=== PATIENT | female | born 1995 | race Caucasian/White ===

== ENCOUNTER → 2020-12-05 08:21 | Outpatient (CLI) | payer BC, SELFPAY ==
--- NOTE | ~2020-12-05 | US_ITS ---
EXAMINATION: US OB /maternal detail DATE: 12/05/2020 09:06 INDICATION: Second trimester anatomic survey TECHNIQUE: Real-time ultrasound of the pelvis was performed. COMPARISON: None. FINDINGS: There is a single living fetus in vertex presentation. The placenta is anterior and 5.1 cm from the i nternal cervical os. heart rate is 153 beats per minute (bpm). cardiac activity and feta l movement are noted. The amniotic fluid index is subjectively normal. The following anatomy was identified as normal: 4 chamber heart 3 vessel cord cord insertion kidneys urinary bladder stomach spine diaphragm ventricles cisterna magna cerebellum The following biometric data were obtained: Biparietal diameter (BPD): 4.4 cm; head circumference (HC): 16.3 cm; abdominal circumference (AC): 14 .0 cm; femur length (FL): 2.8 cm. These measurements are concordant. Estimated weight is 272 g +/- 40 g, which correlates with the 41st percentile when 04/30/2021 i s used as estimated date of delivery. As single measurements, these parameters are each equal to the following estimated gestational ages w ith ranges of +/- 2 standard deviations: BPD: 19 weeks 3 days ( 17 weeks 4 days - 21 weeks 1 days). HC: 19 weeks 1 days ( 17 weeks 4 days - 20 weeks 4 days). AC: 19 weeks 3 days ( 17 weeks 2 days - 21 weeks 3 days). FL: 18 weeks 5 days ( 16 weeks 6 days - 20 weeks 3 days). estimated gestational age based solely on measurements from this exam is 19 weeks 1 days +/- 1 weeks 2 days. IMPRESSION: 1. Single living fetus in vertex presentation. 2. Estimated weight is 272 g +/- 40 g, which correlates with the 41st percentile when 1 is used as estimated date of delivery. Reviewed, dictated and finalized at location B. IMPRESSION: 1. Single living fetus in vertex presentation. 2. Estimated weight is 272 g +/- 40 g, which correlates with the 41st per centile when 04/30/2021 is used as estimated date of delivery.
== END ==
PROVIDERS: Visit Provider Obstetrics & Gynecology
DX: Z36.9 Encounter for antenatal screening, unspecified (principal); Z3A.19 19 weeks gestation of pregnancy
CPT/HCPCS: 76805

== ENCOUNTER 2021-02-24 05:40 | Observation (INO) | payer OTHER, SELFPAY ==
[2021-02-24 06:30] VITALS: BP 106/69; PULSE 125
[2021-02-24 06:35] VITALS: BMI 30.2
[2021-02-24 06:45] VITALS: BP 107/66; PULSE 125
[2021-02-24 07:00] VITALS: BP 107/62; PULSE 123
[2021-02-24 07:15] VITALS: BP 100/60; PULSE 120
[2021-02-24 07:17] LABS: Add Urine Microscopic? YES; Appearance Urine Clear (Clear); Bacteria Urine Trace /hpf; Bilirubin Urine Negative (Negative); Blood Urine Negative (Negative); Color Urine Yellow (Yellow); Glucose Urine UA Negative (Negative); Ketones Urine Trace mg/dL (Negative); Leukocyte Esterase Ur Negative LEU/UL (NEGATIVE); Nitrate Urine Negative (Negative); Protein Urine Negative (Negative); RBC Urine 0-2 /hpf (0-2); Specific Grav Ur 1.012 (1.001-1.035); Squamous Epithelial Cell Urine Few /hpf (Few); Urobilinogen Urine Negative mg/dL (<2.0); WBC Urine 0-3 /hpf (0-3)
[2021-02-24 07:30] VITALS: BP 97/55; PULSE 123
[2021-02-24 07:45] VITALS: BP 93/41; PULSE 116
--- NOTE | 2021-02-24 07:45 | OBADM ---
This patient, Soraya Salazar, admitted to the OB room OB Post 116 for observation. Patient/family oriented to hospital policies and general routines including ID bracelet, bed and alarms, visiting hours, pain management, procedures, bathroom and other care routines, personal items, smoking policy, room service/diet, and visiting hours. Patient/Family are encouraged to report perceived risks to care and to ask questions if they do not understand what they are told or what they should do.
--- NOTE | 2021-03-04 10:31 | PM.OBTRLD ---
OB - Triage/Final Diagnosis Visit Information Comments/Additional reasons for admission: I have assessed the risk for this patient, Soraya Salazar, and determined that she would benefit from observation care. Evaluation Laboratory results: Laboratory Tests 02/24/21 06:56 Urine Color Yellow Urine Appearance Clear Urine pH 6.0 Ur Specific [place] 1.012 Urine Protein Negative Urine Glucose (UA) Negative Urine Ketones Trace Ur Blood (Man) Negative Urine Nitrate Negative Urine Bilirubin Negative Urine Urobilinogen Negative Ur Leukocyte Esterase Negative Urine RBC 0-2 Urine WBC 0-3 Ur Squamous Epith Cells Few Urine Bacteria Trace Final Diagnosis (1) False labor: Code(s): O47.9 - False labor, unspecified Status: Acute
== END 2021-02-24 08:40 | disposition home or self-care (01) ==
PROVIDERS: Admitting Provider Obstetrics & Gynecology; PCP Nurse Practitioner Family; Visit Provider Obstetrics & Gynecology
DX: O47.03 False labor before 37 completed weeks of gestation, third trimester (principal); Z3A.30 30 weeks gestation of pregnancy
CPT/HCPCS: 81001; 87086; G0378

== ENCOUNTER → 2021-03-02 11:03 | Outpatient (CLI) | payer OTHER, SELFPAY ==
--- NOTE | ~2021-03-02 | US_ITS ---
EXAMINATION: US OB follow up DATE: 03/02/2021 11:28 INDICATION: Large for gestational age during third trimester . Assess amniotic fluid index. TECHNIQUE: Real-time ultrasound of the pelvis was performed. The interpreting radiologist was not pre sent for the study. COMPARISON: 12/05/2020 FINDINGS: There is a single living fetus in vertex presentation. The placenta is anterior and not low-lying. F etal heart rate is 133 beats per minute (bpm). The amniotic fluid index is 17.4 cm, which is normal (5th%-95%: 8.8-23.8 cm at 31 weeks estimated gestational age). The following biometric data were obtained: BPD: 8.2 cm -> 33 weeks 1 days Head circumference: 30.2 cm -> 33 weeks 4 days Abdominal circumference: 28.0 cm -> 32 weeks 0 days Femur length: 6.2 cm -> 32 weeks 0 days These measurements are concordant. Head circumference to abdominal circumference ratio: 1.08 (normal range 0.96-1.12). Estimated weight: 1935 g (+/-) 290 g or 4 lbs. 4 oz. (+/-) 10 oz. IMPRESSION: 1. Single living fetus in vertex presentation with heart rate of 133 bpm. 2. Minimal amniotic fluid index of 17.4 cm. 3. Estimated weight is 62nd percentile by Hadlock criteria when 04/30/2021 is used as the estim ated date of delivery (LUIS). Please correlate with clinical information or earlier ultrasounds for mo st accurate LUIS. Reviewed, dictated and finalized at location A. IMPRESSION: 1. Single living fetus in vertex presentation with heart rate of 133 bpm. 2. Minimal amniotic fluid index of 17.4 cm. 3. Estimated weight is 62nd percentile by Hadlock criteria when 1 is used as the estimated date of delivery (LUIS). Please correlate with clinic al information or earlier ultrasounds for most accurate LUIS.
== END ==
PROVIDERS: Visit Provider Obstetrics & Gynecology
DX: O36.63X0 Maternal care for excessive fetal growth, third trimester, not applicable or unspecified (principal); Z3A.00 Weeks of gestation of pregnancy not specified
CPT/HCPCS: 76816

== ENCOUNTER → 2021-04-15 14:06 | Outpatient (CLI) | payer OTHER, SELFPAY ==
--- NOTE | ~2021-04-15 | US_ITS ---
EXAMINATION: US OB follow up DATE: 04/15/2021 14:28 INDICATION: Large for gestational age. Third trimester. TECHNIQUE: Real-time ultrasound of the pelvis was performed. COMPARISON: Ultrasound 03/02/2021, 12/05/2020 FINDINGS: There is a single living fetus in vertex presentation. The placenta is anterior. heart rate is 164 beats per minute (bpm). The amniotic fluid index is 19.5 cm, which is normal. The following biometric data were obtained: Biparietal diameter (BPD): 9.5 cm; head circumference (HC): 33.8 cm; abdominal circumference (AC): 34 .4 cm; femur length (FL): 7.1 cm. These measurements are concordant. Estimated weight is 3348 g +/- 502 g, which correlates with 64th percentile when 04/30/21 is us ed as estimated date of delivery. As single measurements, these parameters are each equal to the following estimated gestational ages w ith ranges of +/- 2 standard deviations: BPD: 38 weeks 4 days (35 weeks 3 days - 41 weeks 5 days). HC: 38 weeks 5 days (36 weeks 0 days - 41 weeks 3 days). AC: 38 weeks 2 days (35 weeks 2 days - 41 weeks 2 days). FL: 36 weeks 2 days (33 weeks 3 days - 39 weeks 2 days). estimated gestational age based solely on measurements from this exam is 38 weeks 0 days +/- 2 weeks 5 days. IMPRESSION: 1. Single living fetus in vertex presentation. 2. Estimated weight is 3348 g +/- 502 g, which correlates with 64th percentile when 04/30/21 i s used as estimated date of delivery. Reviewed, dictated and finalized at location A. DESIGN MECHANICAL ENGINEER IMPRESSION: 1. Single living fetus in vertex presentation. 2. Estimated weight is 3348 g +/- 502 g, which correlates with 64th perc entile when 04/30/21 is used as estimated date of delivery.
== END ==
PROVIDERS: Visit Provider Obstetrics & Gynecology
DX: O36.63X0 Maternal care for excessive fetal growth, third trimester, not applicable or unspecified (principal); Z3A.38 38 weeks gestation of pregnancy
CPT/HCPCS: 76816

== ENCOUNTER 2021-04-23 16:32 | Inpatient (IN) | payer OTHER, SELFPAY ==
[2021-04-23 17:07] VITALS: BP 132/78; PULSE 100
[2021-04-23 17:08] VITALS: BMI 32.3
--- NOTE | 2021-04-23 17:14 | LDADM ---
This patient, Soraya Salazar, was admitted to Labor/Delivery/Recovery 109 on 04/23/21 at 16:32. Plans for labor, pain management and were discussed with patient. Patient/family oriented to hospital policies and general routines including ID bracelet, bed and alarms, visiting hours, pain management, procedures, bathroom and other care routines, personal items, smoking policy, room service/diet and guest tray routines, infant security routines, and visiting hours. Patient/Family are encouraged to report perceived risks to care and to ask questions if they do not understand what they are told or what they should do. See OBIX for further documentation.
[2021-04-23 17:25] LABS: Basophils Absolute Auto 0.1 K/mm3 (0.0-0.1); Basophils Percent Auto 0.4 % (0.2-1.2); Eosinophils Absolute Auto 0.1 K/mm3 (0-0.3); Hematocrit 38.2 % (37.0-47.0); Hemoglobin 12.4 g/dL (12.0-15.0); Immature Granulocyte Absolute 0.31 K/mm3 (0.00-0.031); Immature Granulocyte Percent A 2.7 % (0-0.5); Lymphocytes Absolute Auto 1.78 K/mm3 (0.9-3.2); Lymphocytes Percent Auto 15.6 % (18.3-44.2); Mean Corpuscular HGB Conc 32.5 g/dl (32-36); Mean Corpuscular Volume 92.3 fl (80-100); Mean Platelet Volume 8.6 fl (7.4-10.4); Monocytes Absolute Auto 1.1 K/mm3 (0.1-0.6); Monocytes Percent Auto 9.3 % (2.6-8.5); Neutrophils Absolute Auto 8.1 K/mm3 (1.3-6.7); Platelet Count Result 305 k/mm3 (150-375); Red Blood Count 4.14 M/mm3 (4.2-5.4); Red Cell Distribution Width 16.6 % (11.5-14.5); White Blood Count 11.4 K/mm3 (4.5-10.0)
[2021-04-23] MEDS: DINOPROSTONE 10 MG VAG INSERT VAGINAL (17:41)
[2021-04-23] MEDS: ZOLPIDEM TARTRATE (*CRX) 2.5 MG TABLET PO (22:08)
[2021-04-23 23:30] VITALS: TEMP 36.6
[2021-04-24] VITALS (139 sets, daily range): BP systolic 69–124; BP diastolic 33–104; PULSE 90–148; RESP 16; TEMP 36.4–37.2; O2SAT 94–100
[2021-04-24] MEDS: LACTATED RINGERS 1,000 ML 125 ML IV CONT ×2 (05:55→06:56)
[2021-04-24] MEDS: OXYTOCIN 30 UNITS/NS 500 ML 30 UNITS/500 ML BAG 6 UNITS IV CONT (05:55)
--- NOTE | 2021-04-24 07:56 | WPDOBADMIT ---
Obstetrics - Admit Note Admission Note: record reviewed. No pertinent additions to the history and/or any subsequent changes in the physical findings that are not consistent with the expected course of the were found. AROM clear fluid 1/80/-2 clear fluid. Additions to the history and/or subsequent changes in the physical findings follow. None.
[2021-04-24] MEDS: ONDANSETRON INJ 4 MG/2 ML VIAL IV PUSH (11:39)
[2021-04-24 12:37] LABS: Rapid Plasma Reagin Non-Reactive (NonReactive)
--- NOTE | 2021-04-24 19:37 | PM.OBPRVD ---
OB - Delivery Note Procedure Delivery date: 04/24/21 Procedure: events: Labor Induction Induction method: AROM, per misoprostol protocol and per pitocin protocol Delivery monitor: external FHT and external uterine Route of delivery: Laceration Description: Perineal - 2nd Degree and Vaginal - 2nd Degree Delivery repair: vicryl Specimen: Yes Quantitative Blood Loss (ml): 390 Anesthesia type: Epidural Disposition: floor Baby Date of : 04/24/21 Time of : 19:10 Weeks of gestation at delivery: 39 Infant gender: Female Weight (pounds): 7 Weight (ounces): 12 presentation: vertex position: Right Occiput Anterior Placenta delivery description: Spontaneous cord vessel description: 3 Vessels score one minute: 8 score five minutes: 9
[2021-04-24] MEDS: OXYTOCIN 30 UNITS/NS 500 ML 30 UNITS/500 ML BAG 125 UNITS IV CONT (19:41)
[2021-04-24] MEDS: IBUPROFEN 600 MG TABLET PO (21:53)
[2021-04-24] MEDS: DIBUCAINE 1% OINTMENT 30 GM TUBE 1 APPLIC TOPICAL (21:53)
[2021-04-24] MEDS: BENZOCAINE 20% AER SPR (*SP) 56 GM CAN 1 SPRAY TOPICAL (21:54)
[2021-04-24] MEDS: WITCH HAZEL 40 PADS 1 PAD TOPICAL (21:54)
[2021-04-24] MEDS: ACETAMINOPHEN 325 MG TABLET 650 MG PO (22:37)
--- NOTE | 2021-04-24 22:43 | PC.NURSE ---
Patient transferred to post room #290 via wheelchair. Support person present. Oriented to unit, room, information board, rooming in, admission packet and security measures. Patient verbalizes understanding.
[2021-04-25 03:40] VITALS: BP 100/64; PULSE 96; RESP 16; TEMP 36.1; O2SAT 98
[2021-04-25 06:01] LABS: Hematocrit 36.5 % (37.0-47.0); Hemoglobin 11.7 g/dL (12.0-15.0)
[2021-04-25 07:40] VITALS: BP 102/69; PULSE 94; RESP 16; TEMP 36.1
[2021-04-25] MEDS: MULTIVIT/MIN/PREN/FOL AC/IRON TABLET 1 TAB PO (07:41)
[2021-04-25] MEDS: DOCUSATE SODIUM 100 MG CAPSULE PO (07:41)
[2021-04-25] MEDS: ACETAMINOPHEN 325 MG TABLET 650 MG PO ×2 (07:42→21:23)
--- NOTE | 2021-04-25 10:57 | P.PNOB_ITS ---
OB - PN: Subj Subjective Date/time seen: 04/25/21 10:57 S: doing well no complaints OB - PN: Obj Data Labs CBC & Chem 7: 04/25/21 05:46 Labs: Laboratory Results - last 24 hr 04/23/21 04/25/21 17:15 05:46 Hgb 11.7 L Hct 36.5 L RPR Non-reactive OB - PN A/P Assessment and Plan (1) (normal spontaneous vaginal delivery): Code(s): O80 - Encounter for full-term uncomplicated delivery Status: Acute Assessment and Plan: continue with post care. Time Spent With Patient Time: Total time spent is greater than 50% in coordination of care (as doc umented) at patient's floor/unit and/or counseling patient: Exam Narrative: ff below umbilicus
[2021-04-25] MEDS: IBUPROFEN 600 MG TABLET PO ×2 (11:13→18:39)
[2021-04-25 13:00] VITALS: BP 93/49; PULSE 86; RESP 16; TEMP 36.6
--- NOTE | 2021-04-25 14:50 | WPDANLDPN2 ---
Anes-Prog Note L&D Date/Time: 04/25/21 14:50 Comfortable throughout: labor and delivery Neuraxial method: epidural Epidural/Spinal procedure site: clean & non-tender Neuro status: Neuro function grossly intact. Cardiovascular status: normal Respiratory status: normal Airway patency: baseline Mental status: baseline Post-Op hydration status: normal Vital Signs: Last Vital Signs Temp 36.6 C 04/25/21 13:00 Pulse 86 04/25/21 13:00 Resp 16 04/25/21 13:00 BP 93/49 L 04/25/21 13:00 Pulse Ox 98 04/25/21 03:40 Pain score (VAS): 05/25 I/O: Intake & Output 04/24/21 04/25/21 04/25/21 23:59 07:59 15:59 Intake Total 450 Output Total 300 Balance -300 450 Post-procedural complaints: none Patient feedback: Patient satisfied with anesthetic care.
[2021-04-25 16:55] VITALS: BP 111/72; PULSE 98; RESP 18; TEMP 36.6
[2021-04-25 19:15] VITALS: BP 107/69; PULSE 100; RESP 16; TEMP 36.4
--- NOTE | 2021-04-25 19:15 | PC.NURSE ---
Patient viewed the discharge video Mother & Baby Care, The First Two Weeks online. Patient was given the opportunity and encouraged to ask questions. Patient verbalized understanding of information shared and has been given the mother/baby guide for home reference.
[2021-04-25] MEDS: WITCH HAZEL 40 PADS 1 PAD TOPICAL (21:23)
[2021-04-26] MEDS: IBUPROFEN 600 MG TABLET PO (06:38)
[2021-04-26 08:50] VITALS: BP 102/66; PULSE 89; RESP 18; TEMP 36.3
[2021-04-26] MEDS: DOCUSATE SODIUM 100 MG CAPSULE PO (08:51)
[2021-04-26] MEDS: MULTIVIT/MIN/PREN/FOL AC/IRON TABLET 1 TAB PO (08:51)
--- NOTE | 2021-04-26 11:11 | PM.OBPNVD ---
OB - PN: Subj Subjective Date/time seen: 04/26/21 11:11 doing well desires home no complaints OB - PN: Obj Data Labs CBC & Chem 7: 04/25/21 05:46 OB - PN A/P Assessment and Plan (1) (normal spontaneous vaginal delivery): Code(s): O80 - Encounter for full-term uncomplicated delivery Status: Acute Assessment and Plan: continue with pp care. Time Spent With Patient Time: Total time spent is greater than 50% in coordination of care (as documented) at patient's floor/unit and/or counseling patient: Exam Narrative: ff below umbilicus
[2021-04-28 09:52] VITALS: BP 120/75; PULSE 88; RESP 20; TEMP 36.8; O2SAT 99
--- NOTE | 2021-05-04 09:04 | PM.OBDSVD ---
DS: Admitting Diagnosis Discharge Date 04/26/21 Admitting Diagnosis induction of labor OB - DS: Summary OB Procedures : NST and Ultrasound OB Procedures Intrapartum: Spontaneous Vag Delivery OB Procedures: : None Time Spent with Patient Time attestation: Total time spent providing and/or coordinating discharge services: DS: Data Data Completed and Pending Completed studies during hospitalization: Pending at discharge 04/24/21 19:51 Surgical [PTH] Routine Discharge Plan Discharge Attending physician on discharge: Bruce Maldonado Discharging Clinician: Bruce Maldonado Patient Disposition: Home, Self-Care Activity: may shower Diet: regular Discharge Instructions: Education: Mom and Baby Guide and Preeclampsia Handout Given to: Mother Follow-Up: Call your delivering provider's office for an appointment to be seen in: 6 Weeks Mom and baby should come to the [facility] for the follow-up appointment. Appointment Date/Time: April 28, 2021 at 10:00 am What to expect at your follow-up visit: Physical Assessment Call [phone] if you are unable to keep your appointment time. BREAST CARE: * Wear a snug supportive bra. * For engorgement discomfort: Breast Feeding: * Apply warm moist washcloths * Express milk as needed to relieve engorgement * Wear loose clothing Bottle Feeding: * May apply ice packs * For sore nipples: * Identify correct latch-on * Apply warm moist washcloths before and after nursing * Air dry nipples after nursing * May apply Lansinoh cream to nipples EPISIOTOMY/PERINEAL CARE: * Until bleeding stops, use your shonna bottle after urinating * Change your pad frequently throughout the day * You may take sitz baths several times a day (fill your bathtub with warm water and soak for 20 minutes.) Do NOT bathe in the water * No tub baths until seen by your physician - You may shower ACTIVITY: * Rest as much as possible. * Do not exercise or lift anything heavier than your baby (such as laundry or other children.) * Avoid stairs or driving as much as possible. * Do not put anything into the vagina. No douching, tampons, or sexual activity until seen by physician. NOTIFY PHYSICIAN IF YOU HAVE ANY QUESTIONS OR IF ANY OF THE FOLLOWING SYMPTOMS OCCUR: * If your episiotomy becomes red, swollen, or more painful than what you have experienced in the hospital. * If your vaginal bleeding becomes foul smelling. * If your vaginal bleeding becomes more heavy than a period or if your bleeding changes from pink to bright red. However, you may pass an occasional walnut-sized clot once or twice for the first week . * If you experience a sharp, shooting pain in you calves. * If you discover a hard, reddened area on your breast or if you experience flu-like symptoms. DIET: * Eat regular, well-balanced meals. * Drink plenty of fluids daily. If , drink to thirst. Stand Alone Forms: General Discharge Information Follow-up/Referrals: Bruce Maldonado MD [Physician] - Discharge Medications: Continued ergocalciferol (vitamin D2) [Vitamin D2] 1,250 mcg (50,000 unit) Capsule 1,250 mcg PO WEEKLY RF: 0 Unisom (doxylamine) 25 mg Tablet 25 mg PO HS RF: 0 ferrous sulfate 325 mg (65 mg iron) Tablet,Delayed Release (Dr/Ec) 325 mg PO DAILY RF: 0 prenat.vits,ashlyn,[id number] Tablet 1 tablet PO DAILY RF: 0 Discontinued Adult Low Dose Aspirin 81 mg Tablet 81 mg PO DAILY RF: 0 Date of admission: 04/23/21 16:32 Primary Care Provider: UNKNOWN,DOCTOR Admitting Provider: Bruce Maldonado Attending physician on admission: Bruce Maldonado Condition: Stable
== END 2021-04-26 12:10 | disposition home or self-care (01) | DRG 807 ==
LOC: ANHLDR 16:35 → ANHOB2 04-24 23:11
PROVIDERS: Admitting Provider Obstetrics & Gynecology; Visit Provider Obstetrics & Gynecology
DX: O75.2 Pyrexia during labor, not elsewhere classified (principal); Z37.0 Single live birth; O70.1 Second degree perineal laceration during delivery; Z3A.39 39 weeks gestation of pregnancy
CPT/HCPCS: 36415; 85014; 85018; 85025; 86592; 86850; 86900; 86901; 88307; A9270; J2405; J2590; J2795; J7120

== ENCOUNTER 2021-09-28 08:52 | Outpatient (CLI) | payer OTHER, SELFPAY ==
--- NOTE | 2021-09-28 | ECHO_ITS ---
Patient Info Name: Soraya Salazar Age: 26 years : 1995 Gender: Female Ht: 62 in Wt: 150 lbs BSA: 1.74 m2 HR: 75 bpm BP: 128 / 85 mmHg Heart Rhythm: Sinus Rhythm Technical Quality: Good Exam Date: 09/28/2021 9:37 AM Exam Location: [facility] Pulmonary Patient Status: Outpatient Admit Date: 09/28/2021 Staff Ordering Physician: Tk, Dieter BAGLEY Letterpress Printing Machinist: Ronel Madrigal RDCS Attending Provider: Tk, Dieter BAGLEY Exam Type: CA echo doppler color flow Study Info Indications R07.9 - Chest pain, unspecified Complete two-dimensional, color flow and Doppler transthoracic echocardiogram is performed. Summary 1. Complete two-dimensional, color flow and Doppler transthoracic echocardiogram is performed. 2. Unremarkable echocardiogram. Left Ventricle Left ventricular chamber dimension is normal. Left ventricular systolic function is normal, estimated at 55-60%. The left ventricular diastolic function is normal. Right Ventricle Right ventricular chamber dimension is normal. Left Atria Left atrial chamber dimension is normal. Right Atria Right atrial chamber dimension is normal. Aortic Valve The aortic valve is normal. Pulmonic Valve The pulmonic valve is normal. Mitral Valve The mitral valve has normal leaflets. Tricuspid Valve The tricuspid valve leaflets are normal. Pericardium/Pleural The pericardium appears normal. Aorta The aortic root size at the sinus of Valsalva is normal. Left Ventricular Outflow Tract Name Value Normal LVOT 2D LVOT Diameter 1.8 cm LVOT Doppler LVOT Peak Gradient 4 mmHg LVOT Mean Gradient 3 mmHg LVOT VTI 20 cm LVOT VTI/AV VTI Ratio 0.8 LVOT Stroke Volume 52 ml LVOT CO 3.8 l/min LVOT CI 2.2 l/min/m2 Pulmonic Valve Name Value Normal RVOT Doppler RVOT Peak Gradient 3 mmHg PV Doppler PV Peak Gradient 5 mmHg Mitral Valve Name Value Normal MV Doppler MV Decel [place] 849 cm/s2 MV PHT 30 ms MV Area (PHT) 7.3 cm2 4.0-5.0 MV Diastolic Function MV E Peak Velocity 88 cm/s MV A Peak Velocity 42 cm/s
== END 2021-09-28 08:53 | disposition home or self-care (01) ==
LOC: ANHCARD 08:55
PROVIDERS: Visit Provider Nurse Practitioner Family
DX: R07.9 Chest pain, unspecified (principal)
CPT/HCPCS: 93306